=== PATIENT | female | born 1950 | race Caucasian/White ===

== ENCOUNTER 2019-12-06 08:55 | Day surgery (SDC) | payer MEDICARE, OTHER ==
[~2019-12-06] VITALS: Ht 172.7 cm; Wt 100.0 kg
[~2019-12-06 08:55] MED LIST: APIX5TAB PO; ASPI-515 PO; ATOR40TA78 PO; CARV6.252 PO; CHOL10003 PO; DILT240C81 PO
[2019-12-06 09:17] VITALS: BP 152/87
[2019-12-06] MEDS ORDERED: ACET650S21 PO (09:28)
[2019-12-06 09:54] LABS: ANION GAP 8 mmol/L (5-15); CALCIUM 9.1 mg/dL (8.5-10.1); CHLORIDE 111 mmol/L (98-107); CREATININE 0.93 mg/dL (0.55-1.02)
[2019-12-06] MEDS ORDERED: DRON400T PO (10:35)
[2019-12-06] MEDS ORDERED: PROPOFOL 10 MG/ML, 20ML ONE (11:15)
== END 2019-12-06 12:12 | disposition home or self-care (01) ==
LOC: CACL 08:55
PROVIDERS: ATTEND Internal Medicine Cardiovascular Disease
DX: I48.91 Unspecified atrial fibrillation (principal); I25.10 Atherosclerotic heart disease of native coronary artery without angina pectoris; I11.0 Hypertensive heart disease with heart failure; I50.32 Chronic diastolic (congestive) heart failure; E78.5 Hyperlipidemia, unspecified; Z79.01 Long term (current) use of anticoagulants; Z79.899 Other long term (current) drug therapy; Z88.8 Allergy status to other drugs, medicaments and biological substances; Z90.49 Acquired absence of other specified parts of digestive tract; Z98.890 Other specified postprocedural states; Z82.49 Family history of ischemic heart disease and other diseases of the circulatory system
CPT/HCPCS: 36415; 80048; 92960; J2704

== ENCOUNTER 2020-01-05 09:54 | Day surgery (SDC) | payer MEDICARE, OTHER ==
[~2020-01-05] VITALS: Ht 172.7 cm; Wt 102.3 kg
[~2020-01-05 09:54] MED LIST changes: +ACET650S21 PO; +DRON400T PO
[2020-01-05 10:29] VITALS: BP 160/72
[2020-01-05] MEDS ORDERED: DRON400T PO (10:29)
[2020-01-05 10:46] LABS: BASOPHILS # (AUTO) 0.02 x10^3/uL (0-0.1); BASOPHILS % (AUTO) 0 % (0-1); EOSINOPHILS % (AUTO) 2 % (1-7); LYMPHOCYTES # (AUTO) 1.82 x10^3/uL (1-3.4); LYMPHOCYTES % (AUTO) 27 % (22-44); MD NO; MEAN CORPUSCULAR HGB CONC 32.6 g/dL (32.4-35.8); MEAN CORPUSCULAR VOLUME 98.2 fL (80-100); MEAN PLATELET VOLUME 11.1 fL (7.4-10.4); MONOCYTES # (AUTO) 0.51 x10^3/uL (0.2-0.8); MONOCYTES % (AUTO) 8 % (2-9); NEUTROPHILS # (AUTO) 4.26 x10^3/uL (1.8-6.8); NEUTROPHILS % (AUTO) 63 % (42-75); PLATELET COUNT 260 x10^3/uL (130-400); RED BLOOD COUNT 5.09 x10^6/uL (3.82-5.3); RED CELL DISTRIBUTION WIDTH 14.2 % (9.6-15.2)
[2020-01-05 10:56] LABS: ANION GAP 7 mmol/L (5-15); CALCIUM 8.5 mg/dL (8.5-10.1); CHLORIDE 112 mmol/L (98-107)
[2020-01-05 10:57] LABS: CREATININE 1.07 mg/dL (0.55-1.02)
== END 2020-01-05 11:55 | disposition home or self-care (01) ==
LOC: CACL 09:54
PROVIDERS: ATTEND Internal Medicine Cardiovascular Disease
DX: I48.91 Unspecified atrial fibrillation (principal); I11.0 Hypertensive heart disease with heart failure; I50.32 Chronic diastolic (congestive) heart failure; Z79.01 Long term (current) use of anticoagulants; Z79.899 Other long term (current) drug therapy; Z88.8 Allergy status to other drugs, medicaments and biological substances; Z82.49 Family history of ischemic heart disease and other diseases of the circulatory system
CPT/HCPCS: 36415; 80048; 85025; 92960; 93005